=== PATIENT | male | born 2000 | race Caucasian/White ===

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

== ENCOUNTER 2023-10-30 15:01 | Emergency (ER) | payer SELFPAY ==
[~2023-10-30] VITALS: Ht 175.3 cm; Wt 57.9 kg
[2023-10-30] MEDS: FLUORESCEIN OPHTH 1MG STRIP OS ONE (16:40)
[2023-10-30] MEDS: TETRACAINE 0.5% OPHTH SOLN 4ML OS ONE (16:40)
[2023-10-30] MEDS ORDERED: ERYT5OIN25 OS (17:02)
[2023-10-30] MEDS: ERYTHROMYCIN OPHTH OINT OS ONE (17:22)
[2023-10-30] MEDS: BOOSTRIX VACCINE (TETANUS/DIPHTH/ACEL. PERTUSSIS) 0.5ML SYR IM ONE (17:22)
[2023-10-30 17:28] VITALS: BP 131/70; TEMP 97.8; O2SAT 97
== END 2023-10-30 17:29 | disposition home or self-care (01) ==
LOC: M ED 15:01
DX: H15.89 Other disorders of sclera (principal)